=== PATIENT | male | born 1960 | race Asian ===

== ENCOUNTER → 2018-09-06 | Day surgery (SDC) | payer OTHER ==
[~2018-09-06] VITALS: Ht 177.8 cm; Wt 87.0 kg
[~2018-09-06] MED LIST: ALBU90AE PO; ALBUTEROL SULFATE 2.5 MG/0.5 ML NEB SOLUTION NEB ONE; ALPR0.5T8 PO; BECL10.62 IH; BENZOCAINE 20% 50 MCG/SPRAY 57 GM TP ONE; BUSP10TA23 PO; CYCL10 PO; DICL2.5D8 OU; EPINEPHrine 1:1,000 [1 MG/ML] AMP IM ONE; FAMO20 PO; FINA5TAB41 PO; FLUD.1 PO; FentaNYL CITRATE-PF 100 MCG/2 ML VIAL ONE; GABA-529 PO; INSU100V SQ; KETO5DRO75 OU; LIDOCAINE 2% 30 ML JELLY TP ONE; LIDOCAINE 4% 50 ML SOLUTION TP ONE; METF-960 PO; MIDAZOLAM HCL 2 MG/2 ML VIAL ONE; MONT10TA21 PO; MethylPREDNISolone SOD SUCC 125 MG/2 ML VIAL IVP ONE; OMEP20 PO; OXYGEN THERAPY IH SCH; POLY17PO29 PO; SERT100T12 PO; SIMV-260 PO; SODIUM CHLORIDE 0.9% 1,000 ML IV ONE; TRAZ150 PO
[2018-09-06 07:20] LABS: GLUCOMETER DEV NAME(LOC) SDS.; GLUCOSE,POINT OF CARE 187 MG/DL (70-110)
== END | disposition home or self-care (01) ==
LOC: SURGERY 05:55
PROVIDERS: ATTEND Internal Medicine Critical Care Medicine
DX: J38.4 Edema of larynx (principal); B37.0 Candidal stomatitis; J44.9 Chronic obstructive pulmonary disease, unspecified; F41.9 Anxiety disorder, unspecified; G47.30 Sleep apnea, unspecified; Z79.899 Other long term (current) drug therapy; Z98.890 Other specified postprocedural states
CPT/HCPCS: 31623; 31624; 71045; 82962; 87015; 87070; 87101; 87205; 87206; 87220; 88108; 88312; J0171; J2250; J2930; J3010; J7030

== ENCOUNTER 2022-04-10 06:13 | Day surgery (SDC) | payer OTHER ==
[~2022-04-10] VITALS: Ht 175.3 cm; Wt 90.9 kg
[~2022-04-10 06:13] MED LIST changes: -ALBU90AE PO; -ALBUTEROL SULFATE 2.5 MG/0.5 ML NEB SOLUTION NEB ONE; -ALPR0.5T8 PO; +ASPI-1450 PO; -BECL10.62 IH; -BENZOCAINE 20% 50 MCG/SPRAY 57 GM TP ONE; -BUSP10TA23 PO; +CETI-450 PO; -CYCL10 PO; -DICL2.5D8 OU; -EPINEPHrine 1:1,000 [1 MG/ML] AMP IM ONE; -FINA5TAB41 PO; -FLUD.1 PO; -FentaNYL CITRATE-PF 100 MCG/2 ML VIAL ONE; +GABA-1181 PO; -GABA-529 PO; -INSU100V SQ; -KETO5DRO75 OU; -LIDOCAINE 2% 30 ML JELLY TP ONE; -LIDOCAINE 4% 50 ML SOLUTION TP ONE; +METF-81 PO; -METF-960 PO; -MIDAZOLAM HCL 2 MG/2 ML VIAL ONE; +MONT-35 PO; -MONT10TA21 PO; -MethylPREDNISolone SOD SUCC 125 MG/2 ML VIAL IVP ONE; -OXYGEN THERAPY IH SCH; -POLY17PO29 PO; -SERT100T12 PO; -SODIUM CHLORIDE 0.9% 1,000 ML IV ONE; -TRAZ150 PO; +TRAZ150T80 PO
[2022-04-10] MEDS ORDERED: LIDOCAINE 2% 11 ML JELLY TP ONE (06:14)
[2022-04-10] MEDS ORDERED: BENZOCAINE 20% 50 MCG/SPRAY 57 GM TP ONE (06:14)
[2022-04-10] MEDS ORDERED: LIDOCAINE 4% 50 ML SOLUTION TP ONE (06:14)
[2022-04-10 06:29] LABS: COVID AG,FIA SOURCE NASAL SWAB
[2022-04-10] MEDS ORDERED: SODIUM CHLORIDE 0.9% 1,000 ML IV ONE (06:30)
[2022-04-10] MEDS ORDERED: SODIUM CHLORIDE 0.9% 1,000 ML ONE (06:52)
[2022-04-10] MEDS ORDERED: FentaNYL CITRATE PF 100 MCG/2 ML VIAL ONE (08:23)
[2022-04-10] MEDS ORDERED: MIDAZOLAM HCL 2 MG/2 ML VIAL ONE (08:23)
[2022-04-10] MEDS ORDERED: MethylPREDNISolone SOD SUCC 125 MG/2 ML VIAL ONE (09:12)
[2022-04-10] MEDS ORDERED: MethylPREDNISolone SOD SUCC 125 MG/2 ML VIAL IVP ONE (09:15)
[2022-04-10] MEDS ORDERED: OXYGEN THERAPY IH SCH (20:00)
== END 2022-04-10 11:35 | disposition home or self-care (01) ==
LOC: SURGERY 06:13
PROVIDERS: ATTEND Internal Medicine Critical Care Medicine
DX: R05.3 Chronic cough (principal); R91.1 Solitary pulmonary nodule; J98.09 Other diseases of bronchus, not elsewhere classified; E11.9 Type 2 diabetes mellitus without complications; G47.30 Sleep apnea, unspecified; Z20.822 Contact with and (suspected) exposure to COVID-19; Z87.891 Personal history of nicotine dependence; Z98.890 Other specified postprocedural states
CPT/HCPCS: 31623; 88112; 87101; 87220; 87070; 31624; 71045; 87015; 87426; 87206; J3010; J2250; J2930; Q9967; J7030; C9803; Z7610